=== PATIENT | female | born 1965 | race Caucasian/White ===

== ENCOUNTER 2016-08-13 19:48 | Emergency (ER) | payer OTHER ==
[~2016-08-13] VITALS: Ht 165.1 cm; Wt 70.5 kg
[2016-08-13] MEDS ORDERED: FLEXERIL10 MG PO (21:27)
[2016-08-13] MEDS ORDERED: MOTRIN800 MG PO (21:27)
[2016-08-13 23:59] VITALS: BP 142/84
== END 2016-08-14 | disposition home or self-care (01) ==
LOC: EME 19:48
DX: S16.1XXA Strain of muscle, fascia and tendon at neck level, initial encounter (principal); V49.50XA Passenger injured in collision with unspecified motor vehicles in traffic accident, initial encounter
CPT/HCPCS: 72050; 99281; 99284

== ENCOUNTER 2016-10-13 15:46 | Emergency (ER) | payer OTHER ==
[~2016-10-13] VITALS: Ht 165.1 cm; Wt 71.3 kg
[~2016-10-13 15:46] MED LIST: FLEXERIL10 MG PO; MOTRIN800 MG PO
[2016-10-13 16:54] LABS: HEMATOCRIT 39.1 % (36.0-46.0); MCH 31.3 PG (29.0-34.0); MCHC 33.5 G/DL (30.0-36.0); MCV 93.5 FL (83-99); MEAN PLAT.VOLUME 10.1 uM^3 (9.5-12.4); PLATELET COUNT 316 K/uL (156-360); RBC DIS.WIDTH-CV 11.9 % (11.8-14.6); RBC DIS.WIDTH-SD 41.1 % (39-53); RED BLOOD COUNT 4.18 M/uL (3.80-5.20); WHITE BLOOD COUNT 7.5 K/uL (4.1-10.2)
[2016-10-13 17:03] LABS: CHLORIDE 104 mEq/L (99-109); POTASSIUM 3.8 mEq/L (3.7-5.4); SODIUM 140 mEq/L (136-147)
[2016-10-13 17:04] LABS: GLUCOSE 80 mg/dL (70-99)
[2016-10-13 17:06] LABS: ANION GAP 10 MEQ/L (2-14)
[2016-10-13 17:08] LABS: GFR ESTIMATE (CALCULATED) > 59 mL/min/
[2016-10-13 17:09] LABS: UREA NITROGEN (BUN) 13 mg/dL (9-23)
[2016-10-13 17:15] LABS: TROP-I INTERPRETATION NEGATIVE; TROPONIN-I < 0.01 ng/mL (0.0-0.30)
[2016-10-13] MEDS ORDERED: ELAVIL10 MG PO (18:58)
[2016-10-13] MEDS ORDERED: MULTIVITAMIN1 EAC2 PO (18:58)
[2016-10-13] MEDS ORDERED: CYCLOBENZAPRINE10 MG PO (18:58)
[2016-10-13 19:14] VITALS: BP 122/82
== END 2016-10-13 19:15 | disposition home or self-care (01) ==
LOC: EME 15:46
DX: R00.2 Palpitations (principal); R42 Dizziness and giddiness; Z82.49 Family history of ischemic heart disease and other diseases of the circulatory system
CPT/HCPCS: 71020; 80048; 84484; 85027; 93005; 99281; 99284